=== PATIENT | male | born 1965 | race Caucasian/White ===

== ENCOUNTER 2018-12-25 07:05 | Emergency (ER) | payer OTHER ==
[~2018-12-25] VITALS: Ht 185.4 cm; Wt 83.0 kg
[2018-12-25 07:11] VITALS: BP 134/94
--- NOTE | 2018-12-25 07:26 | NUR ---
ERMD AT BEDSIDE
--- NOTE | 2018-12-25 07:26 | NUR ---
C/O SHARP PAIN 8/10 SWELLING TO L BIG TOE AND L KNEE. PT STATES HE HAS A HX OF GOUT AND HE THINKS THIS IS A FLARE UP. MILD VISIBLE SWELLING/REDNESS TO OUTSIDE OF L BIG TOE AND ABOVE L KNEE CAP. DENIES N/V/D; SKIN IS PINK/WARM/DRY; AAOX4 WITH EVEN AND STEADY GAIT; VSS; PATIENT POSITIONED FOR COMFORT; HOB ELEVATED; BEDRAILS UP X1; BED DOWN. ER MD MADE AWARE OF PT STATUS.
[2018-12-25] MEDS ORDERED: DEXAMETHASONE 10 MG/ML VIAL IM ONE (07:35)
[2018-12-25] MEDS ORDERED: COLCHICINE 0.6 MG TAB PO ONE (07:55)
[2018-12-25] MEDS ORDERED: COLCHICINE 0.6 MG TAB PO SCH (07:58)
--- NOTE | 2018-12-25 07:58 | NUR ---
called pharmacy for colchicine tablets, they will bring them over.
[2018-12-25 08:12] VITALS: BP 131/93
--- NOTE | 2018-12-25 08:12 | NUR ---
Patient discharged with v/s stable. Written and verbal after care instructions given and explained. Patient alert, oriented and verbalized understanding of instructions. Ambulatory with steady gait. All questions addressed prior to discharge. ID band removed. Patient advised to follow up with PMD. Rx of prednisone & colchicine given. Patient educated on indication of medication including possible reaction and side effects. Opportunity to ask questions provided and answered.
== END 2018-12-25 08:12 | disposition home or self-care (01) ==
LOC: MED 07:05
DX: M10.071 Idiopathic gout, right ankle and foot (principal); I10 Essential (primary) hypertension; Z88.8 Allergy status to other drugs, medicaments and biological substances
CPT/HCPCS: 96372; 99283; J1100

== ENCOUNTER 2019-01-16 06:48 | Emergency (ER) | payer OTHER ==
[~2019-01-16] VITALS: Ht 185.4 cm; Wt 83.9 kg
[2019-01-16 06:52] VITALS: BP 140/105
--- NOTE | 2019-01-16 06:56 | NUR ---
PT AMBULATED TO BED 9.
--- NOTE | 2019-01-16 06:58 | NUR ---
53/M PRESENTS SELF TO ED, C/O L TOE GOUT PAIN, X2 DAYS. PT REPORTS THAT HE WAS SEEN LAST MONTH AGO FOR SAME PAIN. L TOE JOINT WITH MILD SWELLING, NO REDNESS, TENDER TO TOUCH. WAS GIVEN RX COLCHICINE 0.6MG 1 TAB PO BID AND PREDNISONE 20MG 1 TAB PO Q12HRS FOR 4 DAYS; PT HAS RAN OUT OF MEDICATION. HX GOUT, HTN, IA
--- NOTE | 2019-01-16 07:09 | NUR ---
Pt report given to QUINTIN MIRELES. Transfer of care at this time.
--- NOTE | 2019-01-16 07:10 | NUR ---
REPORT RECEIVED FROM QUINTIN CHRISTOPHER
--- NOTE | 2019-01-16 07:17 | NUR ---
DR MENA EVALUATING PT AT BEDSIDE.
[2019-01-16] MEDS ORDERED: DEXAMETHASONE 10 MG/ML VIAL IM ONE (07:25)
[2019-01-16] MEDS ORDERED: ACETAMINOPHEN 325 MG TAB PO ONE (07:25)
--- NOTE | 2019-01-16 08:00 | NUR ---
Patient discharged with v/s stable. Written and verbal after care instructions given and explained. Patient alert, oriented and verbalized understanding of instructions. Ambulatory with steady gait. All questions addressed prior to discharge. ID band removed. Patient advised to follow up with PMD. Rx of DECADRON given. Patient educated on indication of medication including possible reaction and side effects. Opportunity to ask questions provided and answered.
== END 2019-01-16 08:00 | disposition home or self-care (01) ==
LOC: MED 06:48
DX: M10.9 Gout, unspecified (principal); I10 Essential (primary) hypertension; Z88.8 Allergy status to other drugs, medicaments and biological substances
CPT/HCPCS: 96372; 99283; J1100

== ENCOUNTER 2019-04-18 16:15 | Emergency (ER) | payer OTHER ==
[~2019-04-18] VITALS: Ht 185.4 cm; Wt 81.6 kg
[2019-04-18 16:30] VITALS: BP 142/95
[2019-04-18 17:23] LABS: BASOPHILS % (AUTO) 0.2 % (0.0-2.0); EOSINOPHILS % (AUTO) 0.4 % (0.0-4.0); HEMATOCRIT 47.8 % (36-52); HEMOGLOBIN 16.1 g/dL (12.0-18.0); LYMPHOCYTES # (AUTO) 0.7 K/uL (2.0-11.5); LYMPHOCYTES % (AUTO) 6.6 % (20.5-51.1); MEAN CORPUSCULAR HEMOGLOBIN 31 pg (27-31); MEAN CORPUSCULAR HGB CONC 34 g/dL (33-37); MEAN CORPUSCULAR VOLUME 90.9 fL (80-94); MONOCYTES # (AUTO) 0.4 K/uL (0.8-1.0); MONOCYTES % (AUTO) 3.6 % (1.7-9.3); NEUTROPHILS # (AUTO) 9.6 K/uL (1.8-7.7); NEUTROPHILS % (AUTO) 89.2 % (42.2-75.2); PLATELET COUNT (AUTO) 208 K/uL (140-450); RED BLOOD CELL COUNT(AUTO) 5.26 MIL/uL (4.20-6.10); RED CELL DISTRIBUTION WIDTH 14.3 % (11.6-13.7); WHITE BLOOD COUNT (AUTO) 10.8 K/uL (4.8-10.8)
[2019-04-18 17:32] LABS: ANION GAP 12.3 (8-16); CARBON DIOXIDE 29.7 mmol/L (21-32); CREATININE 1.2 mg/dL (0.7-1.3)
[2019-04-18 17:38] LABS: ALBUMIN 4.5 g/dL (3.4-5.0); TOTAL BILIRUBIN 0.8 mg/dL (0.0-1.0)
[2019-04-18 22:07] VITALS: BP 147/98
== END 2019-04-18 22:07 | disposition home or self-care (01) ==
LOC: MED 16:15
DX: S63.601A Unspecified sprain of right thumb, initial encounter (principal); I10 Essential (primary) hypertension; I25.2 Old myocardial infarction; Z88.6 Allergy status to analgesic agent; X58.XXXA Exposure to other specified factors, initial encounter; Y92.89 Other specified places as the place of occurrence of the external cause; Y93.89 Activity, other specified; Y99.8 Other external cause status
CPT/HCPCS: 29125; 36415; 71045; 73130; 80053; 84484; 84550; 85025; 93005; 99284; Q0092

== ENCOUNTER 2020-05-02 18:16 | Emergency (ER) | payer OTHER ==
[~2020-05-02] VITALS: Ht 182.9 cm; Wt 86.2 kg
[2020-05-02 18:45] VITALS: BP 139/98
--- NOTE | 2020-05-02 18:51 | NUR ---
Patient transferred to bed 5 via wheelchair by triage nurse. RN evaluating patient at bedside.
--- NOTE | 2020-05-02 19:02 | NUR ---
Dr. Patricio is evaluating the patient at bedside.
[2020-05-02] MEDS ORDERED: prednisoLONE 15 MG/5 ML UDC PO STA (19:05)
[2020-05-02] MEDS ORDERED: COLCHICINE 0.6 MG TAB PO STA (19:05)
--- NOTE | 2020-05-02 19:07 | NUR ---
55 y/o male from home c/o left knee pain x 2 days. Denies trauma/injury. Noticable swelling to left knee. Pt able to ambulate. Positioned for comfort, VSS medhx: gout, MT, HTN, HLD
[2020-05-02] MEDS ORDERED: DEXAMETHASONE 10 MG/ML VIAL IM STA (19:12)
--- NOTE | 2020-05-02 19:33 | NUR ---
Pt report RECEIVED FROM QUINTIN SHELL . Transfer of care at this time.
--- NOTE | 2020-05-02 20:05 | NUR ---
PT RESTING IN BED IN POSITION OF COMFORT, BED LOW AND LOCKED, SIDERAILS UP, VSS, WILL CONTINUE TO MONITOR
[2020-05-02 21:04] VITALS: BP 139/98
--- NOTE | 2020-05-02 21:04 | NUR ---
Patient discharged with v/s stable. Written and verbal after care instructions given and explained. Patient alert, oriented and verbalized understanding of instructions. Ambulatory with steady gait. All questions addressed prior to discharge. ID band removed. Patient advised to follow up with PMD. Rx of TRAMADOL/PREDNISONE/COLCRYS given. Patient educated on indication of medication including possible reaction and side effects. Opportunity to ask questions provided and answered.
== END 2020-05-02 21:04 | disposition home or self-care (01) ==
LOC: MED 18:16
DX: M10.9 Gout, unspecified (principal); I51.9 Heart disease, unspecified; E78.00 Pure hypercholesterolemia, unspecified; Z88.6 Allergy status to analgesic agent
CPT/HCPCS: 73562; 99283; Q0092

== ENCOUNTER 2020-12-04 13:41 | Emergency (ER) | payer OTHER ==
[~2020-12-04] VITALS: Ht 185.4 cm; Wt 86.2 kg
[2020-12-04 13:43] VITALS: BP 119/78
--- NOTE | 2020-12-04 13:52 | NUR ---
PT TAKEN TO BED 04 VIA W/C.
--- NOTE | 2020-12-04 13:59 | NUR ---
55 Y/O MALE C/O L KNEE PAIN & SWELLING X 1DAY. PT STATES HE ATE SHRIMP X5DAYS AND NOTICED LEG SWELLING AND TODAY THE PAIN IS UNBERABLE. PT DENIES N/V, DENIES FEVER/CHILLS. DENIES TRAUMA/INJURY. PMH: GOUT, HEART PROBLEM , 1 STENT ALLERGIES: IBUPROFEN
--- NOTE | 2020-12-04 14:05 | NUR ---
[employer] ASSOCIATE AT PT BEDSIDE.
[2020-12-04] MEDS ORDERED: predniSONE 20 MG TAB PO ONE (14:15)
[2020-12-04] MEDS ORDERED: CRUSHER, PILL MC ONE (14:20)
[2020-12-04] MEDS ORDERED: COLCHICINE 0.6 MG TAB PO ONE (15:55)
[2020-12-04] MEDS ORDERED: traMADol 50 MG TAB PO ONE (15:55)
[2020-12-04 17:18] VITALS: BP 119/78
--- NOTE | 2020-12-04 17:19 | NUR ---
Patient discharged with v/s stable. Written and verbal after care instructions given and explained. Patient verbalized understanding. Ambulatory with steady gait. All questions addressed prior to discharge. Advised to follow up with PMD.
== END 2020-12-04 17:21 | disposition home or self-care (01) ==
LOC: MED 13:41
DX: M10.9 Gout, unspecified (principal); M25.562 Pain in left knee; I51.9 Heart disease, unspecified; Z88.6 Allergy status to analgesic agent
CPT/HCPCS: 73562; 99284; J7512